=== PATIENT | female | born 1985 | race Caucasian/White ===

== ENCOUNTER 2019-03-29 15:36 | Inpatient (IN) | payer BC ==
[2019-03-29] MEDS ORDERED: Buffered Lidocaine 1% SYRIN* 1 ML/SYRINGE INTRADERM ONE (16:43)
[2019-03-29] MEDS ORDERED: Lactated Ringers 1000 ML Bag* 1,000 ML IV ONE (16:43)
[2019-03-29] MEDS ORDERED: Azithromycin TAB* 250 MG PO ONE (16:48)
[2019-03-29] MEDS ORDERED: Lactated Ringers 1000 ML Bag* 1,000 ML IV SCH (17:00)
[2019-03-29] MEDS: Betamethasone INJ* 6 MG/ML 5 ML VIAL (30 MG) IM SCH (17:18)
--- NOTE | 2019-03-29 17:34 | HP ---
General Information - Reason for Visit premature rupture of membranes at 34 0/7 weeks - General Information Maternal Age: 33 Grav: 2 Para: 0 SAB: 1 IEA: 0 Estimated Due Date: 05/10/19 Determined By: LMP Maternal Blood Type and Rh: A Positive - Results this Serology/RPR Result: Non-Reactive Rubella Result: Immune HBsAg Result: Negative HIV Result: Negative Past Medical History Delivery History: See Records Pertinent Past Medical History: See Records Past Medical History Comment: heart defect as repaired at 16 months Pertinent Past Surgical History: See Records Pertinent Family History: See Records - Antepartal Records Antepartal Records: Reviewed, Complicated by: - premature rupture of membranes Review of Systems Constitutional: Comfortable CV Complaint: No Respiratory: Shortness of Breath: No Gastrointestinal: No Nausea/Vomiting, Normal Bowel Movement Genitourinary: Leaking Fluid, No Dysuria, No Bleeding Musculoskeletal: No Complaint Neurological: No Headache Movement: Normal Exam Allergies/Adverse Reactions: Allergies No Known Allergies Allergy (Verified 10/11/14 15:19) T: 98.4 BP :120/71 P : 84 Lab Values - Entire Visit: Laboratory Tests 03/29/19 16:05 Vag Amniotic Fld Detect Positive - Measurements Height: 5 ft 8.5 in Weight: 157 lb Weight in lbs: [id number] Body Mass Index (BMI): 23.5 Pre- Weight: 143 lb Weight Gained This : 14 lbs and 0 ozs - Exam Breast: Breast Exam Deferred CVA: No CVA Tenderness Extremities: No Edema Heart: Normal Rhythm/Heart Sounds HEENT: No Significant Findings Lungs: Clear Bilaterally Rectal: Rectal Exam Deferred Reflexes: DTR 2+ Thyroid: No Thyromegaly - Abdominal Exam Abdomen Exam: Non-Tender - Ultrasound/Biophysical Profile Ultrasound Status: Radiology Department Full Exam Targeted Exam Findings Presenting Part: Vertex Membrane Status: Leaking Amniotic Fluid Evaluation: Positive ROM Plus EFM Findings - External Monitor Findings Baseline Heart Rate: 140 External Monitor Findings: Accelerations Present, No Pattern of Variable or Late Decelerations, Variability Moderate Contractions: None Assessment/Plan - Assessment Pt 33 yo G 1 presents with premature rupture of membranes at 34 0/7 week with EDC 05/10/19 based on LMP and 20 week US. Pt's care through home interactive [facility] project [facility] and has had normal NIPT 46 XY. Pt developed leaking of fluid today not associated with fevers/chills/or labor. GBS unknown - Obstetrical Risk Factors Obstetrical Risk Factors: GBS Unknown, Risk Factors Comment: Plan is to give benefit of 48 hours after first dose steroids and IV abx given unknown GBS status. PT is aware of recommendation of induction of delivery once steroids have been on board after 48 hours. Will obtain official US to have up to date EFW for Neonatology. Delivery will occur sooner if evidence of infection or other maternal indications. - Plan Plan: Antibiotic Prophylaxis, Admit - Anticipate Vaginal Delivery
[2019-03-29 17:58] LABS: Urine Benzodiazepine Screen None Detected (None Detect); Urine Opiates Screen None Detected (None Detect)
[2019-03-29 18:09] LABS: ABS Eosinophils 0.1 10^3/ul (0-0.6); ABS Lymphocytes 1.2 10^3/ul (1.0-4.8); ABS Monocytes 0.7 10^3/ul (0-0.8); ABS Neutrophils 10.3 10^3/ul (1.5-7.7); Eosinophil % 0.7 %; Hematocrit 41 % (35-47); Hemoglobin 14.3 g/dL (12.0-16.0); Lymphocyte % 9.9 %; Mean Corpuscular HGB Conc 35 g/dL (31-36); Mean Corpuscular Hemoglobin 33 pg (27-31); Mean Corpuscular Volume 94 fL (80-97); Mean Platelet Volume 10.5 fL (7.4-10.4); Platelet Count 173 10^3/uL (150-450); Red Blood Count 4.33 10^6 /uL (3.70-4.87); Red Cell Distribution Width 13 % (10.5-15); White Blood Count 12.3 10^3/uL (3.5-10.8)
[2019-03-29] MEDS: Ampicillin ADVAN(*) 2 GM in NS 0.9% 100 ML* 100 ML IVPB SCH ×2 (18:10→23:36)
[2019-03-29] MEDS ORDERED: NS 0.9% 100 ML* 100 ML ONE (23:31)
[2019-03-30] MEDS: Ampicillin ADVAN(*) 2 GM in NS 0.9% 100 ML* 100 ML IVPB SCH ×3 (06:32→17:37)
[2019-03-30] MEDS ORDERED: D5LR 1000 ML BAG* 500 ML IV SCH (09:00)
[2019-03-30] MEDS ORDERED: Ondansetron INJ* 2 MG/ML VIAL IV PRN (14:04)
[2019-03-30] MEDS ORDERED: Oxytocin in LR* 0 UNITS/0 ML BAG IVPB ONE (14:34)
[2019-03-30] MEDS ORDERED: Glycerin ADULT SUPP PR PRN (16:42)
[2019-03-30] MEDS ORDERED: Dibucaine 1% 28.35 GM TUBE PR PRN (16:42)
[2019-03-30] MEDS ORDERED: Acetaminophen TAB* 325 MG PO PRN (16:42)
[2019-03-30] MEDS ORDERED: Lactated Ringers 1000 ML Bag* 1,000 ML IV SCH (17:00)
--- NOTE | 2019-03-30 17:09 | PROCNOTE ---
[facility] OB: Delivery Note - Delivery A Date of : 03/30/19 Time of : 16:11 Score 1 Minute: 8 Score 5 Minutes: 9 Gestational Age in Weeks and Days at Delivery: 34 Weeks and 1 Days Delivery Method: Spontaneous Vaginal Labor: Spontaneous Did Patient attempt ?: N/A, No Previous Amniotic Fluid: Clear Estimated Blood Loss: 200 Anesthesia/Analgesia: None Delivered By: Maura Gonzales - Nursery Level of Nursery: NICU - Perineum Perineal Injury: Perineal Laceration, 1st Degree - Events Delivery Events of Note: Full Course of Antibiotics, ROM > 24 Hours, Steriods Given for Lung Maturity - Additional Delivery Notes Additional Delivery Notes: Pt had PPROM at 8am on 03/29/19. She was admitted, received latency abx and steroids and began to progress in labor. Contractions became more regular around 4am and progressed throughout the day. Just after 2pm she was feeling pressure and found to be fully dilated. At this time contractions had also spaced out to more than 5min apart. She started pushing and used nipple stimulation to initiate contractions. She pushed for over 1.5hrs to deliver the in BLAYNE position followed quickly by the shoulders and the rest of the body. The baby was placed on mom's abdomen. There was a short cord. After more than 1min the cord was clamped x2 and cut by the dad. The placenta delivered with gentle cord traction and fundal massage and appeared to be intact. A small left side first degree laceration was repaired with 2 figure-of -eight sutures of 3-0 vicryl rapide. Fundus was firm with good hemostasis. Baby quickly evaluated by head usher and able to stay skin to skin with mom.
[2019-03-30] MEDS: Ibuprofen TAB* 600 MG PO PRN ×2 (17:34→23:08)
[2019-03-30] MEDS: Betamethasone INJ* 6 MG/ML 5 ML VIAL (30 MG) IM SCH (17:37)
[2019-03-30] MEDS ORDERED: Lidocaine 1% INJ* 10 MG/ML 30 ML SDV ONE (19:25)
[2019-03-30] MEDS: Witch Hazel PAD* JAR TOPICAL PRN (20:12)
[2019-03-30] MEDS: Simethicone TAB* 80 MG TAB.CHEW PO SCH (20:12)
[2019-03-30] MEDS ORDERED: Lidocaine 1%* 5 ML VIAL ONE (21:14)
[2019-03-30] MEDS: Docusate CAP* 100 MG PO SCH (22:40)
[2019-03-31 06:21] LABS: ABS Lymphocytes 1.1 10^3/ul (1.0-4.8); ABS Monocytes 1.1 10^3/ul (0-0.8); Eosinophil % 0.1 %; Hematocrit 32 % (35-47); Hemoglobin 11.4 g/dL (12.0-16.0); Lymphocyte % 5.9 %; Mean Corpuscular HGB Conc 36 g/dL (31-36); Mean Corpuscular Hemoglobin 34 pg (27-31); Mean Corpuscular Volume 94 fL (80-97); Mean Platelet Volume 9.2 fL (7.4-10.4); Platelet Count 147 10^3/uL (150-450); Red Blood Count 3.38 10^6 /uL (3.70-4.87); Red Cell Distribution Width 13 % (10.5-15); White Blood Count 18.3 10^3/uL (3.5-10.8)
[2019-03-31] MEDS: Simethicone TAB* 80 MG TAB.CHEW PO SCH (07:09)
[2019-03-31] MEDS ORDERED: Ferrous Gluconate TAB* 324 MG TAB PO SCH (09:00)
[2019-03-31] MEDS: Ibuprofen TAB* 600 MG PO PRN ×2 (09:30→17:34)
[2019-03-31] MEDS: Docusate CAP* 100 MG PO SCH ×3 (10:27→20:40)
[2019-04-01] MEDS: Ibuprofen TAB* 600 MG PO PRN (09:23)
[2019-04-01 10:58] VITALS: BP 105/53
[2019-04-01] MEDS: Docusate CAP* 100 MG PO SCH ×2 (12:39→19:02)
[2019-04-01] MEDS: Witch Hazel PAD* JAR TOPICAL PRN (15:49)
== END 2019-04-01 20:00 | disposition home or self-care (01) | DRG 560 ==
LOC: MCHOBOUT 15:36 → MCHOB 16:42
PROVIDERS: ADMIT Obstetrics & Gynecology; ATTEND Obstetrics & Gynecology
PROC: 10E0XZZ Delivery of Products of Conception, External Approach (ICD-10-PCS; principal; 2019-03-30)
PROC: 0HQ9XZZ Repair Perineum Skin, External Approach (ICD-10-PCS; 2019-03-30)
DX: O42.013 Preterm premature rupture of membranes, onset of labor within 24 hours of rupture, third trimester (principal); Z37.0 Single live birth; O70.0 First degree perineal laceration during delivery; Z3A.34 34 weeks gestation of pregnancy
CPT/HCPCS: 36415; 76819; 80307; 84112; 85025; 86850; 86900; 86901; 87086; A9270-GY; J0702